=== PATIENT | female | born 2000 | race Caucasian/White ===

== ENCOUNTER 2018-03-07 00:34 | Emergency (ER) | payer OTHER ==
[~2018-03-07] VITALS: Ht 149.9 cm; Wt 52.2 kg
[~2018-03-07 00:34] MED LIST: APAP W/CODEINE1 TA2 PO; AUGMENTIN 875875 MG PO; DEPO-PROVE150 MG/1 M IM; NOHOMEMEDICATIONS
[2018-03-07 01:34] LABS: ABSOLUTE NEUTROPHILS 4.9 thou/uL (1.4-8.2); BASOPHILS 0.2 % (0.0-2.0); EOSINOPHILS 1.9 % (0.0-3.0); HEMATOCRIT 40.7 % (37.0-47.0); LYMPHOCYTES 29.2 % (24.0-44.0); MCH 31.4 pg (26.0-34.0); MCHC 34.4 g/dL (28.0-37.0); MCV 91.4 fL (80.0-100.0); MONOCYTES 8.7 % (1.0-8.0); PLATELET COUNT 314 thou/uL (150-400); RBC 4.45 mil/uL (4.20-5.00); RDW 13.1 % (10.5-14.5); WBC 8.2 thou/uL (4.0-11.0)
[2018-03-07 01:43] LABS: CALCIUM 9.1 mg/dL (8.5-10.1); CREATININE 0.6 mg/dL (0.6-1.0); POTASSIUM 3.6 mmol/L (3.5-5.1)
[2018-03-07 01:45] LABS: ALBUMIN 4.2 g/dL (3.4-5.0); TOTAL BILIRUBIN 0.2 mg/dL (<0.1-1.0); TOTAL PROTEIN 8.5 g/dL (6.4-8.2)
[2018-03-07 01:47] LABS: APTT 27.1 Seconds (24.5-32.8); PROTIME 10.1 Seconds (9.3-11.4)
[2018-03-07] MEDS ORDERED: ANUSOL-HC25 MG RECTAL (02:22)
[2018-03-07] MEDS ORDERED: HYDROCORTISONE30 G9 RECTAL (02:22)
[2018-03-07 03:15] VITALS: BP 110/72
== END 2018-03-07 03:16 | disposition home or self-care (01) ==
LOC: ER 00:34
PROVIDERS: Emergency Medicine
DX: K60.2 Anal fissure, unspecified (principal); K62.5 Hemorrhage of anus and rectum; F17.210 Nicotine dependence, cigarettes, uncomplicated

== ENCOUNTER 2018-04-05 13:54 | Emergency (ER) | payer OTHER ==
[~2018-04-05] VITALS: Ht 149.9 cm; Wt 49.9 kg
[~2018-04-05 13:54] MED LIST changes: +ANUSOL-HC25 MG RECTAL; +HYDROCORTISONE30 G9 RECTAL
[2018-04-05 14:54] LABS: ABSOLUTE NEUTROPHILS 4.6 thou/uL (1.4-8.2); BASOPHILS 0.6 % (0.0-2.0); EOSINOPHILS 1.6 % (0.0-3.0); HEMATOCRIT 33.3 % (37.0-47.0); HEMOGLOBIN 11.7 gm/dL (12.0-15.0); LYMPHOCYTES 16.8 % (24.0-44.0); MCH 31.1 pg (26.0-34.0); MONOCYTES 10.8 % (1.0-8.0); PLATELET COUNT 551 thou/uL (150-400); POLYS 70.2 % (36.0-66.0); RBC 3.75 mil/uL (4.20-5.00); RDW 13.4 % (10.5-14.5); WBC 6.6 thou/uL (4.0-11.0)
[2018-04-05 14:56] LABS: URINE BILIRUBIN NEGATIVE (Negative); URINE BLOOD NEGATIVE (Negative); URINE CLARITY SL HAZY; URINE COLOR YELLOW; URINE GLUCOSE-RANDOM* NEGATIVE (Negative); URINE KETONES NEGATIVE (Negative); URINE LEUKOCYTES-REFLEX 1+ (Negative); URINE NITRITE-REFLEX NEGATIVE (Negative); URINE PROTEIN (DIPSTICK) NEGATIVE (Negative); URINE SPECIFIC GRAVITY 1.025 (1.005-1.035)
[2018-04-05 15:02] LABS: CALCIUM 9.3 mg/dL (8.5-10.1); CREATININE 0.6 mg/dL (0.6-1.0); POTASSIUM 3.2 mmol/L (3.5-5.1)
[2018-04-05 15:07] LABS: CASTS None Seen /LPF (None Seen); CRYSTALS None Seen /LPF (None Seen); SQUAMOUS >10 Many /LPF (0-3)
[2018-04-05 15:08] LABS: ALBUMIN 3.4 g/dL (3.4-5.0); BACTERIA-REFLEX 1-9 Few /HPF (None Seen); TOTAL BILIRUBIN 0.2 mg/dL (<0.1-1.0); TOTAL PROTEIN 8.6 g/dL (6.4-8.2); URINE RBC None Seen /HPF (0-2)
[2018-04-05] MEDS ORDERED: FLAGYL500 M1 PO (15:50)
[2018-04-05] MEDS ORDERED: DOXYCYCLINE 10100 MG PO (15:50)
[2018-04-05 16:40] VITALS: BP 164/79
== END 2018-04-05 18:05 | disposition home or self-care (01) ==
LOC: ER 13:54
PROVIDERS: Emergency Medicine
DX: A64 Unspecified sexually transmitted disease (principal); N76.0 Acute vaginitis; B96.89 Other specified bacterial agents as the cause of diseases classified elsewhere

== ENCOUNTER 2019-02-14 13:03 | Emergency (ER) | payer OTHER ==
[~2019-02-14] VITALS: Ht 157.5 cm; Wt 54.4 kg
[~2019-02-14 13:03] MED LIST changes: +DOXYCYCLINE 10100 MG PO; +FLAGYL500 M1 PO
[2019-02-14 14:30] VITALS: BP 122/71
== END 2019-02-14 14:20 | disposition home or self-care (01) ==
LOC: ER 13:03
DX: R04.0 Epistaxis (principal)

== ENCOUNTER 2019-02-23 18:51 | Emergency (ER) | payer OTHER ==
[~2019-02-23] VITALS: Ht 149.9 cm; Wt 54.0 kg
[2019-02-23 20:56] LABS: URINE BILIRUBIN NEGATIVE (Negative); URINE BLOOD NEGATIVE (Negative); URINE CLARITY CLEAR; URINE COLOR YELLOW; URINE GLUCOSE-RANDOM* NEGATIVE (Negative); URINE KETONES NEGATIVE (Negative); URINE LEUKOCYTES-REFLEX NEGATIVE (Negative); URINE NITRITE-REFLEX NEGATIVE (Negative); URINE PROTEIN (DIPSTICK) NEGATIVE (Negative); URINE SPECIFIC GRAVITY 1.025 (1.005-1.035); URINE UROBILINOGEN 0.2 E.U./dl (0.2-1.0)
[2019-02-23 21:10] VITALS: BP 156/96
== END 2019-02-23 21:12 | disposition home or self-care (01) ==
LOC: ER 18:51
PROVIDERS: Physician Assistant
DX: Z20.2 Contact with and (suspected) exposure to infections with a predominantly sexual mode of transmission (principal); N89.8 Other specified noninflammatory disorders of vagina